=== PATIENT | male | born 1995 | race Two or more races ===

== ENCOUNTER 2024-05-24 14:57 | Emergency (ER) | payer BC ==
[~2024-05-24] VITALS: Ht 182.9 cm; Wt 77.1 kg
[2024-05-24] MEDS ORDERED: PROCHLORPERAZINE EDISYLATE 10 MG/2 ML VIAL ONE (17:14)
[2024-05-24] MEDS ORDERED: HYDROMORPHONE 1 MG/1 ML DISP.SYRIN ONE (17:14)
[2024-05-24 17:18] LABS: BASOPHILS % (AUTO) 0.5 % (0.0-2.0); EOSINOPHILS # (AUTO) 0.2 K/uL (0.0-0.7); EOSINOPHILS % (AUTO) 3.1 % (0.0-7.0); HEMATOCRIT 46.6 % (36.7-47.1); HEMOGLOBIN 16.2 g/dL (12.5-16.3); LYMPHOCYTES # (AUTO) 1.5 K/uL (0.8-4.8); LYMPHOCYTES % (AUTO) 22.7 % (20.5-51.5); MEAN CORPUSCULAR HEMOGLOBIN 30.5 uug (23.8-33.4); MEAN CORPUSCULAR HGB CONC 35 g/dL (32.5-36.3); MEAN CORPUSCULAR VOLUME 88.2 fL (73.0-96.2); MONOCYTES # (AUTO) 0.9 K/uL (0.1-1.30); MONOCYTES % (AUTO) 14.8 % (0.0-11.0); NEUTROPHILS # (AUTO) 3.8 K/uL (1.8-8.9); NEUTROPHILS % (AUTO) 58.9 % (38.5-71.5); PLATELET COUNT (AUTO) 178 K/uL (152-348); RED BLOOD CELL COUNT(AUTO) 5.29 MIL/uL (4.06-5.63); RED CELL DISTRIBUTION WIDTH 13.7 % (12.1-16.2); WHITE BLOOD COUNT (AUTO) 6.4 K/uL (3.6-10.2)
[2024-05-24 17:32] LABS: CALCIUM 9.2 mg/dL (8.5-10.1); CREATININE 1.1 mg/dL (0.6-1.3); POTASSIUM 4.2 mmol/L (3.5-5.1)
[2024-05-24 17:37] LABS: ALBUMIN 3.5 g/dL (3.4-5.0); BILIRUBIN,DIRECT 0.1 mg/dL (0.0-0.2); BILIRUBIN,TOTAL 0.4 mg/dL (0.2-1.0); MAGNESIUM 2.1 mg/dL (1.8-2.4); TOTAL PROTEIN, SERUM 7.3 g/dL (6.4-8.2)
[2024-05-24] MEDS: PROCHLORPERAZINE EDISYLATE 10 MG/2 ML VIAL IV ONE (17:37)
[2024-05-24] MEDS: HYDROMORPHONE 1 MG/1 ML DISP.SYRIN IV ONE (17:37)
[2024-05-24] MEDS: IV NS 1000 ML 1,000 ML IV ONE (17:37)
[2024-05-24] MEDS ORDERED: KETOROLAC TROMETHAMINE 30 MG INJ ONE (18:06)
[2024-05-24] MEDS: KETOROLAC TROMETHAMINE 30 MG INJ IVP ONE (18:18)
[2024-05-24] MEDS ORDERED: PROC10TA29 PO (18:51)
[2024-05-24 18:59] VITALS: BP 120/69; TEMP 99; O2SAT 97
== END 2024-05-24 19:00 | disposition home or self-care (01) ==
LOC: ER 14:57
DX: A08.4 Viral intestinal infection, unspecified (principal); Z79.899 Other long term (current) drug therapy
CPT/HCPCS: 36415; 83735; 85025; J0780; J1171; J1885; J7040